=== PATIENT | male | born 1970 | race Caucasian/White ===

== ENCOUNTER 2023-08-17 14:16 | Outpatient (RCR) | payer BC, SELFPAY | END 2023-08-17 23:59 | disposition home or self-care (01) | LOC: RPT 14:16 | PROVIDERS: ATTENDING PHYSICIAN Orthopaedic Surgery; FAMILY PHYSICIAN Family Medicine | DX: M54.2 Cervicalgia (principal) | CPT/HCPCS: 97012; 97110; 97112; 97140; 97162; 97535 ==

== ENCOUNTER → 2023-09-05 20:22 | Outpatient (REF) | payer BC, SELFPAY | LOC: MRI 3T 20:22 | PROVIDERS: ATTENDING PHYSICIAN Specialist; FAMILY PHYSICIAN Family Medicine | DX: R20.0 Anesthesia of skin (principal); G95.9 Disease of spinal cord, unspecified | CPT/HCPCS: 70553; A9575 ==

== ENCOUNTER → 2023-09-12 12:25 | Outpatient (REF) | payer BC, SELFPAY | LOC: PAVMRI 12:25 | PROVIDERS: ATTENDING PHYSICIAN Specialist; FAMILY PHYSICIAN Family Medicine | DX: G95.9 Disease of spinal cord, unspecified (principal) | CPT/HCPCS: 72157; A9575 ==

== ENCOUNTER → 2023-09-25 12:30 | Outpatient (REF) | payer BC, SELFPAY ==
[2023-09-25 13:03] LABS: Hematocrit 40.6 % (39.0-52.0); Hemoglobin 14.2 g/dL (13.0-18.0); Mean Corpuscular Hgb 31.6 pg (27.0-31.0); Mean Corpuscular Volume 90.2 fL (80.0-94.0); Mean Platelet Volume 11.6 fL (7.4-10.4); Platelet Count 218 10^3/uL (130-400); Red Cell Dist. Width 12.4 % (11.5-14.5)
[2023-09-25 13:11] LABS: INR 0.99; PT 13.1 Sec (11.4-14.6)
[2023-09-25 13:12] VITALS: BP 136/95; BP_SYST 68
[2023-09-25 15:07] VITALS: BP 124/86; BP_SYST 60
[2023-09-25 15:48] LABS: CSF Clarity Clear; CSF Color Colorless; CSF Tube # 4; Red Cell Count/CSF 1 mm^3; White Cell Count/CSF 1 mm^3 (0-5)
[2023-09-25 16:00] LABS: Spinal Fluid Glucose 64 mg/dl (40-70); Spinal Fluid Protein 52 mg/dl (12-60)
== END ==
LOC: RADI 12:30
PROVIDERS: ATTENDING PHYSICIAN Specialist; FAMILY PHYSICIAN Family Medicine
DX: G35 Multiple sclerosis (principal); Z01.812 Encounter for preprocedural laboratory examination; Z01.818 Encounter for other preprocedural examination
CPT/HCPCS: 36415; 62328; 82040; 82042; 82164; 82784; 82945; 83873; 83916; 84157; 85027; 85610; 86592; 86780; 87476; 89051

== ENCOUNTER 2023-10-31 14:06 | Outpatient (RCR) | payer BC, SELFPAY | END 2023-10-31 23:59 | disposition home or self-care (01) | LOC: RPT 14:06 | PROVIDERS: ATTENDING PHYSICIAN Family Medicine | DX: M54.51 Vertebrogenic low back pain (principal); Z73.6 Limitation of activities due to disability | CPT/HCPCS: 97010; 97110; 97112; 97140; 97162 ==

== ENCOUNTER 2023-11-28 11:02 | Outpatient (RCR) | payer BC, SELFPAY | END 2023-11-28 23:59 | disposition home or self-care (01) | LOC: RPT 11:02 | PROVIDERS: ATTENDING PHYSICIAN Family Medicine | DX: M54.51 Vertebrogenic low back pain (principal); Z73.6 Limitation of activities due to disability | CPT/HCPCS: 97010; 97110; 97112; 97140 ==

== ENCOUNTER 2024-01-02 14:00 | Outpatient (RCR) | payer BC, SELFPAY | END 2024-01-02 23:59 | disposition home or self-care (01) | LOC: RPT 14:00 | PROVIDERS: ATTENDING PHYSICIAN Family Medicine | DX: M54.51 Vertebrogenic low back pain (principal); Z73.6 Limitation of activities due to disability | CPT/HCPCS: 97110; 97112; 97140 ==

== ENCOUNTER → 2024-03-04 07:21 | Outpatient (REF) | payer BC, SELFPAY | LOC: HWRAD 07:21 | PROVIDERS: ATTENDING PHYSICIAN Specialist; FAMILY PHYSICIAN Family Medicine | DX: N50.819 Testicular pain, unspecified (principal) | CPT/HCPCS: 76870; 93976 ==

== ENCOUNTER → 2024-03-07 08:10 | Outpatient (REF) | payer BC, SELFPAY | LOC: HWRAD 08:10 | PROVIDERS: ATTENDING PHYSICIAN Physician Assistant Medical; FAMILY PHYSICIAN Family Medicine | DX: D17.1 Benign lipomatous neoplasm of skin and subcutaneous tissue of trunk (principal); M79.89 Other specified soft tissue disorders | CPT/HCPCS: 72125; 76604 ==

== ENCOUNTER → 2024-03-18 12:34 | Outpatient (REF) | payer BC, SELFPAY | LOC: DHSLP 12:34 | PROVIDERS: ATTENDING PHYSICIAN Family Medicine | DX: G47.33 Obstructive sleep apnea (adult) (pediatric) (principal) | CPT/HCPCS: 95800 ==